=== PATIENT | female | born 1985 | race Caucasian/White ===

== ENCOUNTER 2017-02-07 00:26 | Emergency (ER) | payer OTHER ==
[2017-02-07] MEDS ORDERED: Sodium Chloride 0.9% 100 ML ONE (00:48)
[2017-02-07 01:20] LABS: #Basophils 0.1 thou/uL (0.0-0.2); #Eosinphils 0.2 thou/uL (0.0-0.7); #Lymphocytes 3.2 thou/uL (1.20-3.40); #Monocytes 0.9 thou/uL (0.11-0.59); %Basophils 0.7 % (0.0-1.0); %Lymphocytes 18.4 % (21.0-51.0); %Monocytes 5.1 % (0.0-10.0); %Neutrophils 74.9 % (42.0-75.0); Mean Corpuscular Hemoglobin 25.8 pg (27.0-31.0); Mean Corpuscular Volume 83.2 fl (81.0-99.0); Mean Platelet Volume 5.5 fL (7.4-10.4); Platelet Count 422 thou/uL (130-400); RBC Distribution Width 13.4 % (11.5-14.5); Red Blood Cell (RBC) Count 3.48 mill/uL (4.20-5.40); White Blood Cell (WBC) Count 17.4 thou/uL (4.8-10.8)
[2017-02-07 01:33] LABS: ALT (SGPT) 9 U/L (0-55); AST (SGOT) 13 U/L (5-34); Albumin 3.2 g/dL (3.5-5.0); Alkaline Phosphatase 117 U/L (40-150); Anion Gap 15 mmol/L (10-20); BUN (Urea Nitrogen) 8 mg/dL (7.0-18.7); Bilirubin, Total 0.2 mg/dL (0.2-1.2); Calc. Creatinine Clearance 0 mL/min (70-130); Carbon Dioxide 19 mmol/L (22-29); Chloride 106 mmol/L (98-107); Estimated GFR-MDRD Greater than 90; Globulin 4.1 g/dL (2.4-3.5); Glucose 117 mg/dL (70-105); Potassium 3.2 mmol/L (3.5-5.1); Protein, Total 7.3 g/dL (6.0-8.3); Sodium 137 mmol/L (136-145)
== END 2017-02-07 01:15 | disposition short-term general hospital (02) ==
LOC: BURERS 00:26
DX: O44.13 Complete placenta previa with hemorrhage, third trimester (principal); Z3A.30 30 weeks gestation of pregnancy; O99.333 Smoking (tobacco) complicating pregnancy, third trimester
CPT/HCPCS: 80053; 85025; 86900; 86901; 94760; J7050

== ENCOUNTER 2022-03-01 17:43 | Observation (INO) | payer BC ==
[2022-03-01] MEDS ORDERED: Morphine 10 MG/ML VIAL ONE (18:26)
[2022-03-01] MEDS ORDERED: Clindamycin/D5W 600 mg/50 ml Premix Bag ONE (18:27)
[2022-03-01] MEDS ORDERED: methylPREDNISolone Sod Succ/PF 125 MG/2 ML VIAL ONE (18:27)
[2022-03-01 18:51] LABS: ALT (SGPT) 14 U/L (8-55); AST (SGOT) 15 U/L (5-34); Albumin 3.5 g/dL (3.5-5.0); Alkaline Phosphatase 69 U/L (40-110); Anion Gap 12 mmol/L (10-20); BUN (Urea Nitrogen) 9 mg/dL (7.0-18.7); Bilirubin, Total 0.2 mg/dL (0.2-1.2); Calc. Creatinine Clearance 0 mL/min (70-130); Calcium 8.5 mg/dL (7.8-10.44); Carbon Dioxide 26 mmol/L (22-29); Chloride 105 mmol/L (98-107); Globulin 3.6 g/dL (2.4-3.5); Glucose 87 mg/dL (70-105); Potassium 4.1 mmol/L (3.5-5.1); Protein, Total 7.1 g/dL (6.0-8.3); Sodium 139 mmol/L (136-145)
[2022-03-01] MEDS ORDERED: Morphine 4 MG/ML VIAL ONE (18:53)
[2022-03-01 18:55] LABS: BHCG - Serum Negative (NEGATIVE); Pregs Control Background? CLEAR/WHITE (CLR/WHITE); Pregs Control Bar Appear? YES (CONTROL BAR)
[2022-03-01 19:10] LABS: #Eosinphils 0.3 thou/uL (0.0-0.7); #Lymphocytes 2.4 thou/uL (1.20-3.40); #Monocytes 0.5 thou/uL (0.11-0.59); #Neutrophils 5.9 thou/uL (1.40-6.50); %Basophils 0.4 % (0.0-1.0); %Lymphocytes 26.2 % (21.0-51.0); %Neutrophils 65.4 % (42.0-75.0); Hemoglobin 10.3 g/dL (12.0-16.0); Mean Corpuscular HGB CONC 32.3 g/dL (32.0-36.0); Mean Corpuscular Hemoglobin 24.7 pg (27.0-31.0); Mean Corpuscular Volume 76.6 fL (78.0-98.0); Mean Platelet Volume 5.2 fL (7.4-10.4); Platelet Count 348 thou/uL (130-400); RBC Distribution Width 17.1 % (11.5-14.5); Red Blood Cell (RBC) Count 4.19 mill/uL (4.20-5.40); White Blood Cell (WBC) Count 9.1 thou/uL (4.8-10.8)
[2022-03-01] MEDS ORDERED: Iopamidol 370 76% 100 ML VIAL FS ONE (19:31)
[2022-03-01] MEDS ORDERED: Acetaminophen 325 MG TAB ONE ×2 (20:09→20:11)
[2022-03-01 20:23] LABS: Anisocytosis MODERATE=16-30 cells (100X) (0-5/hpf); Hypochromia SLIGHT = 6-15 cells (100X) (0-5/hpf); MDiff Complete? YES; Ovalocytes SLIGHT = 2-5 cells (100X) (0-1/hpf)
[2022-03-01 22:29] VITALS: BMI 34.2
[2022-03-02 02:00] LABS: SARS-CoV-2 NAA Rapid Test Not Detected (NotDetected)
[2022-03-02] MEDS ORDERED: Clindamycin/D5W 600 MG in Premix Bag 1 BAG IVPB SCH ×2 (02:00→14:00)
[2022-03-02] MEDS: Morphine 4 MG/ML VIAL SLOW IVP PRN ×2 (02:14→05:30)
[2022-03-02] MEDS ORDERED: Acetaminophen 500 MG TAB PO PRN (10:06)
[2022-03-02 12:15] VITALS: BP 131/85; TEMP 97.8
[2022-03-02] MEDS ORDERED: methylPREDNISolone Sod Succ/PF 125 MG/2 ML VIAL IVP SCH (13:00)
[2022-03-02] MEDS ORDERED: ALPRAZolam 0.5 MG TAB PO SCH (21:00)
[2022-03-03] MEDS ORDERED: Clindamycin 150 MG CAP PO SCH (06:00)
[2022-03-03] MEDS ORDERED: predniSONE 20 MG TAB PO SCH (08:00)
[2022-03-03] MEDS ORDERED: Escitalopram Oxalate 10 mg Tablet PO SCH (09:00)
== END 2022-03-02 15:01 | disposition home or self-care (01) ==
LOC: BURERS 17:43 → BURMED 19:30
PROVIDERS: ADMIT Family Medicine; ATTEND Family Medicine
DX: L03.213 Periorbital cellulitis (principal); F17.210 Nicotine dependence, cigarettes, uncomplicated; Z79.899 Other long term (current) drug therapy; Z20.822 Contact with and (suspected) exposure to COVID-19
CPT/HCPCS: 70481; 80053; 84703; 85025; 96366; 96374; 96375; 96376; G0378; J2270; J2930; J3490; Q9967; U0002

== ENCOUNTER 2022-12-28 18:51 | Emergency (ER) | payer OTHER, BC ==
[2022-12-28] MEDS ORDERED: Ondansetron ODT 4 MG TAB ONE (19:05)
[2022-12-28] MEDS ORDERED: Bupivacaine 0.5% 10 ML VIAL ONE (19:07)
== END 2022-12-28 20:15 | disposition home or self-care (01) ==
LOC: BURERS 18:51
DX: S66.321A Laceration of extensor muscle, fascia and tendon of left index finger at wrist and hand level, initial encounter (principal); F17.210 Nicotine dependence, cigarettes, uncomplicated; W26.9XXA Contact with unspecified sharp object(s), initial encounter
CPT/HCPCS: 12002; J3490; Q0162